=== PATIENT | female | born 1975 ===

== ENCOUNTER 2021-04-18 12:30 | Inpatient (IN) | payer OTHER ==
[~2021-04-18] VITALS: Ht 167.6 cm; Wt 134.3 kg
[2021-04-19] MEDS ORDERED: CARVEDILOL25 MG (14:50)
[2021-04-19] MEDS ORDERED: IRBESARTAN300 MG PO (14:50)
[2021-04-19] MEDS ORDERED: NIFE60TA3 PO (14:50)
[2021-04-19] MEDS ORDERED: HYDROCHLOROTH12.5 MG PO (14:51)
[2021-04-19] MEDS ORDERED: TAMOXIFEN CITRA20 MG PO (14:51)
[2021-04-19] MEDS ORDERED: IRON325 MG PO (14:51)
== END 2021-04-24 14:30 | disposition home or self-care (01) | DRG 737 ==
LOC: OB/GYN 04-20 08:52 → O/R 04-20 08:52 → SURH 04-20 10:45 → OB/GYN 04-20 23:54
PROVIDERS: ADMIT Specialist; ATTEND Specialist
PROC: 0DNW0ZZ Release Peritoneum, Open Approach (ICD-10-PCS; 2021-04-20)
PROC: 0UB10ZZ Excision of Left Ovary, Open Approach (ICD-10-PCS; principal; 2021-04-20 13:45)
PROC: 30233N1 Transfusion of Nonautologous Red Blood Cells into Peripheral Vein, Percutaneous Approach (ICD-10-PCS; 2021-04-21)
DX: C56.2 Malignant neoplasm of left ovary (principal); D62 Acute posthemorrhagic anemia; Z20.822 Contact with and (suspected) exposure to COVID-19; N73.6 Female pelvic peritoneal adhesions (postinfective)